=== PATIENT | female | born 1960 | race Caucasian/White ===

== ENCOUNTER → 2019-09-28 | Outpatient (CLI) | payer OTHER ==
[~2019-09-28] MED LIST: HYDROCODONE-AP1 EAC6 PO; NOHOMEMEDICATIONS
== END ==
LOC: M.LAB 07:58
PROVIDERS: ATTEND Orthopaedic Surgery
DX: Z01.812 Encounter for preprocedural laboratory examination (principal); Z11.59 Encounter for screening for other viral diseases

== ENCOUNTER → 2020-08-25 | Outpatient (CLI) | payer OTHER ==
--- NOTE | 2020-09-05 22:16 | SLEEP ---
[address] [address] SLEEP STUDY REPORT Name: KELECHI QUINTANILLA Room: [facility]#: [id number] Admission: 08/25/20 Attend Phys: Mary Jane Ugalde Discharge: Date of : 56 Report #: [id number] THIS REPORT FOR: cc: Nat Wolf Linda J. DO Pervez, Adeel MD ~ DOC #: [id number] Keith Small MD DATE OF STUDY: 08/26/2020 HOME SLEEP STUDY Total duration of the study is 543 minutes. During this time duration, we recorded multiple sleep related respiratory events, which are just below the criteria for a diagnosis of obstructive sleep apnea. These include 15 obstructive apneas, 6 central apneas and 21 hypopneas. Overall apnea-hypopnea index is 4.6. Body position data indicates the patient is lying on the right side throughout the sleep study. O2 saturation was below 88% for only 0.1 minutes. During the sleep study, mean heart rate was 74. IMPRESSION: Increased upper airway resistance syndrome with an apnea-hypopnea index of 4.6. The patient is noted to be lying on the right side throughout the sleep study, findings are just below criteria for a diagnosis of obstructive sleep apnea. RECOMMENDATIONS: Clinical correlation is advised. If the patient has significant sleep complaints or if her another reason that there is high suspicion of obstructive sleep apnea, then in-lab sleep study to evaluate further can be considered. Clinical correlation is advised regarding whether to recommend weight loss. Recommend avoiding driving and other activities requiring vigilance if drowsy. This entire sleep study was reviewed by board certified sleep physician. MD GRANT Tyler/LYNETTE <ELECTRONICALLY SIGNED> By: Keith Small MD 09/05/20 2216 29 Ajohny Small MD /nt
== END ==
LOC: M.SLEEPLAB 08-04 20:00 → M.PUL 08-18 14:00
PROVIDERS: ATTEND Family Medicine
DX: K21.9 Gastro-esophageal reflux disease without esophagitis (principal); R53.82 Chronic fatigue, unspecified; R06.83 Snoring; L67.8 Other hair color and hair shaft abnormalities

== ENCOUNTER → 2020-09-01 | Outpatient (CLI) | payer OTHER | LOC: M.RAD 14:00 | PROVIDERS: ATTEND Family Medicine | DX: Z12.31 Encounter for screening mammogram for malignant neoplasm of breast (principal) ==